=== PATIENT | female | born 1985 | race Caucasian/White ===

== ENCOUNTER 2023-02-05 22:55 | Emergency (ER) | payer BC, OTHER ==
[~2023-02-05] VITALS: Ht 170.2 cm; Wt 102.0 kg
[2023-02-06] MEDS ORDERED: NS 1,000 ML IV ONE (00:25)
[2023-02-06 01:57] LABS: BLOOD UREA NITROGEN 8 MG/DL (9-23); CALCIUM LEVEL 8.9 MG/DL (8.5-10.1); CARBON DIOXIDE LEVEL 28 MMOL/L (20-31); CHLORIDE LEVEL 103 MMOL/L (98-107); CK-MB VALUE MASS < 1.0 NG/ML (<3.6); CREATININE FOR GFR 0.68 MG/DL (0.55-1.30); GLOMERULAR FILTRATION RATE > 60.0 (>60); GLUCOSE, FASTING 93 MG/DL (60-100); POTASSIUM SERUM 4.3 MMOL/L (3.5-5.1); SODIUM LEVEL 137 MMOL/L (136-145)
[2023-02-06 02:00] LABS: THYROID STIMULATING HORMONE 0.008 uIU/ML (0.55-4.78)
[2023-02-06 02:02] LABS: CPK CREATINE PHOSPHOKINASE 63 U/L (34-145); MB/CK RELATIVE INDEX 1.58 (< OR =4)
[2023-02-06 02:06] LABS: HCG, SERUM QUALITATIVE NEGATIVE (NEGATIVE)
[2023-02-06] MEDS ORDERED: ISOVUE-370 76% 100ML VIAL As Ordered ONE (02:09)
[2023-02-06 03:33] VITALS: BP 136/90
== END 2023-02-06 04:00 | disposition home or self-care (01) ==
LOC: M ED 22:55
DX: R20.2 Paresthesia of skin (principal)